=== PATIENT | female | born 1960 | race Caucasian/White ===

== ENCOUNTER → 2017-01-25 | Outpatient (CLI) | payer MEDICARE ==
[~2017-01-25] MED LIST: ABILIFY2 MG PO; LAMICTAL 100 M100 MG PO; LYRICA 100 MG100 MG PO
[2017-01-27 06:37] LABS: Vitamin D, 25-Hydroxy 19.9 ng/mL (30.0-100.0)
[2017-01-27 08:42] LABS: RA Latex Turbid. <10.0 IU/mL (0.0-13.9)
[2017-01-27 14:40] LABS: Anti-DNA (DS) Ab Qn 2 IU/mL (0-9); RNP Antibodies <0.2 AI (0.0-0.9); Sjogren's Anti-SS-A <0.2 AI (0.0-0.9); Sjogren's Anti-SS-B <0.2 AI (0.0-0.9)
[2017-01-27 16:37] LABS: Actin (Smooth Muscle) Antibody 8 Units (0-19)
[2017-01-27 18:40] LABS: Antinuclear Antibodies, IFA Positive (.)
[2017-01-29 03:37] LABS: CCP Antibodies IgG/IgA 5 units (0-19)
== END ==
LOC: LAB 15:10
PROVIDERS: Internal Medicine
DX: M25.50 Pain in unspecified joint (principal)